=== PATIENT | female | born 1985 | race Caucasian/White ===

== ENCOUNTER → 2017-01-02 | Outpatient (CLI) | payer OTHER ==
[~2017-01-02] MED LIST: CLONAZEPAM0.5 MG PO; EFFEXOR XR75 MG PO; NAPROXEN 250 M250 MG PO; NORCO 7.5-3251 EACH PO
[2017-01-02 08:37] LABS: HEMOGLOBIN 15.3 gm/dl (12.3-15.3); RED BLOOD COUNT 4.83 M/UL (4.00-5.10); WHITE BLOOD COUNT 6.6 K/UL (4.5-11.0)
== END ==
LOC: OPSV2 07:48
PROVIDERS: Obstetrics & Gynecology
DX: Z01.812 Encounter for preprocedural laboratory examination (principal); D25.9 Leiomyoma of uterus, unspecified
CPT/HCPCS: 36415; 81001; 85025

== ENCOUNTER 2017-01-10 08:54 | Day surgery (SDC) | payer OTHER ==
[~2017-01-10] VITALS: Ht 170.2 cm; Wt 52.2 kg
[2017-01-10] MEDS ORDERED: EFFEXOR XR75 MG PO (09:35)
[2017-01-10] MEDS ORDERED: CLONAZEPAM0.5 MG PO (09:35)
[2017-01-11 05:46] LABS: HEMOGLOBIN 12.7 gm/dl (12.3-15.3)
[2017-01-11] MEDS ORDERED: NORCO 7.5-3251 EACH PO (11:34)
[2017-01-11] MEDS ORDERED: NAPROXEN 250 M250 MG PO (11:34)
== END 2017-01-11 13:27 | disposition home or self-care (01) ==
LOC: OR 08:54 → M/S 14:57 → ZEROF 15:05 → M/S 15:05 → OR 01-11 13:27
PROVIDERS: Obstetrics & Gynecology
PROC: 0UTC4ZZ Resection of Cervix, Percutaneous Endoscopic Approach (ICD-10-PCS; 2017-01-10)
PROC: 0UT74ZZ Resection of Bilateral Fallopian Tubes, Percutaneous Endoscopic Approach (ICD-10-PCS; 2017-01-10)
PROC: 0UT94ZZ Resection of Uterus, Percutaneous Endoscopic Approach (ICD-10-PCS; principal; 2017-01-10 09:15)
DX: D25.9 Leiomyoma of uterus, unspecified (principal); K21.9 Gastro-esophageal reflux disease without esophagitis; F41.9 Anxiety disorder, unspecified; F17.210 Nicotine dependence, cigarettes, uncomplicated; Z82.49 Family history of ischemic heart disease and other diseases of the circulatory system; Z86.69 Personal history of other diseases of the nervous system and sense organs; Z79.899 Other long term (current) drug therapy; Z90.722 Acquired absence of ovaries, bilateral
CPT/HCPCS: 36415; 84703; 85014; 85018; C1769; J0690; J1100; J1885; J2250; J2405; J2550; J2710; J2795; J3010; J7120

== ENCOUNTER → 2021-11-01 | Outpatient (CLI) | payer OTHER ==
[~2021-11-01] MED LIST changes: +EFFEXOR XR 75 M75 MG PO; +HYDROXYZINE HCL25 MG PO; +KLONOPIN0.5 MG PO; +LORTAB 5-325 M1 EACH PO; +NAPROSYN500 MG PO; +ZOFRAN 4 MG TAB4 MG PO
== END ==
LOC: HEART 5 11:00
DX: R00.2 Palpitations (principal); R94.31 Abnormal electrocardiogram [ECG] [EKG]
CPT/HCPCS: 93306

== ENCOUNTER 2021-11-03 21:51 | Emergency (ER) | payer OTHER ==
[~2021-11-03 21:51] MED LIST changes: -ZOFRAN 4 MG TAB4 MG PO
[2021-11-03] MEDS ORDERED: ZOFRAN 4 MG TAB4 MG PO (23:26)
== END 2021-11-03 23:33 | disposition home or self-care (01) ==
LOC: ER1 21:51
DX: R11.2 Nausea with vomiting, unspecified (principal); R25.2 Cramp and spasm; F17.200 Nicotine dependence, unspecified, uncomplicated; Z86.16 Personal history of COVID-19; Z20.822 Contact with and (suspected) exposure to COVID-19
CPT/HCPCS: 0240U; 99283

== ENCOUNTER 2022-03-11 11:02 | Emergency (ER) | payer OTHER ==
[~2022-03-11 11:02] MED LIST changes: +ZOFRAN 4 MG TAB4 MG PO
[2022-03-11 12:24] LABS: BUN/CREATININE RATIO 8 (0-10)
[2022-03-11 12:38] LABS: HEMOGLOBIN 12.3 gm/dl (12.3-15.3); RED BLOOD COUNT 4.01 M/UL (4.00-5.10)
[2022-03-14 22:11] LABS: CHLAMYDIA TRACHOMATIS, NAA Negative (Negative); NEISSERIA GONORRHOEAE, NAA Negative (Negative)
== END 2022-03-11 15:34 | disposition home or self-care (01) ==
LOC: ER1 11:02
PROVIDERS: Physician Assistant
DX: U07.1 COVID-19 (principal); D69.6 Thrombocytopenia, unspecified; E78.5 Hyperlipidemia, unspecified; Z90.89 Acquired absence of other organs; Z90.710 Acquired absence of both cervix and uterus; F17.210 Nicotine dependence, cigarettes, uncomplicated
CPT/HCPCS: 0240U; 80053; 81001; 83690; 85025; 87086; 96374; 99284; J2405; Q9967

== ENCOUNTER 2022-03-13 14:23 | Emergency (ER) | payer OTHER ==
[2022-03-13 15:29] LABS: RED BLOOD COUNT 4.18 M/UL (4.00-5.10); WHITE BLOOD COUNT 3.2 K/UL (4.5-11.0)
[2022-03-13 15:54] LABS: BUN/CREATININE RATIO 11 (0-10)
== END 2022-03-13 17:00 | disposition home or self-care (01) ==
LOC: ER1 14:23
PROVIDERS: Emergency Medicine
DX: U07.1 COVID-19 (principal); I51.9 Heart disease, unspecified; E78.5 Hyperlipidemia, unspecified; Z90.89 Acquired absence of other organs; Z90.81 Acquired absence of spleen; F17.200 Nicotine dependence, unspecified, uncomplicated; Z90.710 Acquired absence of both cervix and uterus
CPT/HCPCS: 80053; 81001; 85025; 99283

== ENCOUNTER → 2022-03-13 | Outpatient (CLI) | payer OTHER | LOC: LAB 12:16 | DX: U07.1 COVID-19 (principal); D69.6 Thrombocytopenia, unspecified | CPT/HCPCS: 36415 ==